=== PATIENT | male | born 1955 | race Caucasian/White ===

== ENCOUNTER 2017-04-03 08:45 | Inpatient (IN) | payer MEDICARE ==
[2017-05-18 12:51] VITALS: BMI 34.4
[2017-05-21] MEDS ORDERED: Ropivacaine 0.2% HCl/PF 20 ML ONE (11:50)
[2017-05-21] MEDS ORDERED: Midazolam HCl 2 mg/2 ml Vial ONE (11:50)
[2017-05-21] MEDS ORDERED: Fentanyl 100 MCG/2 ML VIAL ONE ×5 (11:50→16:25)
[2017-05-21] MEDS ORDERED: Neomycin-Polymyxin 1 ML AMP ONE ×2 (12:24→13:20)
[2017-05-21] MEDS ORDERED: Bupivacaine HCl 0.5%/Epinephrine 1:200,000/PF 30 ml Vial ONE (12:24)
[2017-05-21] MEDS ORDERED: Ondansetron HCl/PF 4 MG/2 ML Vial ONE (13:04)
[2017-05-21] MEDS ORDERED: Dexamethasone 20 MG/5 ML VIAL ONE (13:04)
[2017-05-21] MEDS ORDERED: Lidocaine 1% PF 5 ML VIAL ONE (13:04)
[2017-05-21] MEDS ORDERED: traMADol HCl 50 MG TAB PO PRN (13:20)
[2017-05-21] MEDS ORDERED: HYDROcodone/Acetaminophen 10/325 mg Tablet PO PRN ×2 (13:20)
[2017-05-21] MEDS ORDERED: Promethazine HCl 25 MG/ML VIAL IM PRN ×2 (13:20→15:51)
[2017-05-21] MEDS ORDERED: Ropivacaine HCl/PF 250 ML in Premix Bag 1 BAG NERVE BLCK SCH ×2 (13:20→13:22)
[2017-05-21] MEDS ORDERED: Zolpidem Tartrate 5 MG TAB PO PRN (13:20)
[2017-05-21] MEDS ORDERED: Ondansetron HCl/PF 4 MG/2 ML Vial IVP PRN ×2 (13:20→15:51)
[2017-05-21] MEDS ORDERED: Milk Of Magnesia 30 ML UDCUP PO PRN (15:22)
[2017-05-21] MEDS ORDERED: Cepastat Lozenges 1 LOZ PO PRN (15:22)
[2017-05-21] MEDS ORDERED: Fentanyl 100 MCG/2 ML VIAL SLOW IVP PRN (15:22)
[2017-05-21] MEDS ORDERED: Fleet Enema 133 ML BOT PR PRN (15:22)
[2017-05-21] MEDS ORDERED: HYDROmorphone 2 MG/ML VIAL SLOW IVP PRN (15:51)
[2017-05-21] MEDS ORDERED: Promethazine HCl 25 MG/ML VIAL SLOW IVP PRN (15:51)
--- NOTE | 2017-05-21 18:20 | RAD ---
TWO VIEWS OF THE RIGHT KNEE: Comparison: None. History: Status post right knee arthroplasty. FINDINGS: Two views right knee shows the patient to be status post right knee arthroplasty without perihardwar e lucency or fracture. Air in the soft tissues and overlying skin augustina are from recent surgery. IMPRESSION: Status post right knee arthroplasty without evidence of complication. POS: [facility]
--- NOTE | 2017-05-21 18:22 | RAD ---
TWO VIEWS LEFT KNEE: Comparison: None. History: Status post left knee arthroplasty. FINDINGS: Two views of the left knee shows the patient to be status post left knee arthroplasty without periha rdware lucency or fracture. Air in the soft tissues and overlying skin augustina are from recent surge ry. IMPRESSION: Status post left knee arthroplasty without evidence of complication. POS: [facility]
[2017-05-21] MEDS: Dextrose 5 %-0.45 % NaCl 1,000 ML IV SCH (18:53)
[2017-05-21] MEDS: Fentanyl 100 MCG/2 ML VIAL SLOW IVP PRN (19:03)
--- NOTE | 2017-05-21 20:59 | PDOC.EVN ---
Event Note - Event Note Event Note: Resident to bedside for code filiberto called 2/2 episode of syncope during micturation at approx. 2030 on 05/21. Pt s/p b/l knee surgery w/ last dose of pain medication given earlier on in the night. Per nursing staff, patient has been running bradycardic in the 50's with otherwise normal vital signs. Pt w/ LOC for approximately 20 second with subsequent regaining of consciousness. No seizure activity witnessed, no confusion. Repeat vital signs w/ stable BP and mild bradycardia at 57. 12 lead EKG obtained showing sinus bradycardia at 57 bpm. No sinus tachycardia was documented in prior vital signs. Pt currently on aspirin as he is POD#1. No other anticoagulation for DVT ppx. Denies any CP or SOB at this time. Cardiac enzymes were drawn. On exam, pt neurologically intact. Nursing staff to notify admitting physician Dr. Rangel of likely vaso -vagal syncopal event during micturation. For exact vital signs please refer to code sheet documentation.
[2017-05-21 21:17] LABS: Troponin I 0.012 ng/mL (< 0.028)
[2017-05-21] MEDS: Ferrous Gluconate 324 MG TAB PO SCH (21:42)
[2017-05-21] MEDS: Acetaminophen 500 MG TAB PO PRN (21:52)
--- NOTE | 2017-05-21 22:38 | OP ---
DATE OF SURGERY: 05/21/2017 OPERATIONS: 1. Right total knee arthroplasty. 2. Left total knee arthroplasty. PREOPERATIVE DIAGNOSIS: Bilateral advanced knee osteoarthritis. POSTOPERATIVE DIAGNOSIS: Bilateral advanced knee osteoarthritis. COMPLICATIONS: None. ESTIMATED BLOOD LOSS: 200 mL SURGEON: Jason Rangel M.D. BULK MAIL CLERK: Waqas Lee PA-C. INDICATIONS: Mr. Medina is a 61-year-old male, who has developed severe osteoarthritis of the knees. He has been treated conservatively, but has failed to improve. He has been indicated now for bilat eral total knee arthroplasty to restore function and relieve pain. Risks have been reviewed in [facility]. He has elected to proceed with the operation. DESCRIPTION OF PROCEDURE: Mr. Medina was identified in the preoperative holding area. His bilateral extremities were marked. He was carried to the operating room. He was positioned supine. General anesthesia was induced. A multidisciplinary timeout was performed. The bilateral lower extremities were prepped and draped in sterile fashion. We began the procedure with the right total knee arthroplasty. We performed an anterior approach to the right knee. We dissected down through the subcutaneous tissues and a medial peripatellar arthr otomy was created. We exposed the underlying knee joint, which was extensively arthritic. There we re large osteophytes. We performed a medial release as well as the anterior fat pad resection. We then everted the patella. We resected 99 mm of patellar bone and debrided the osteophytes from the patellar margin. At this point, we drilled for a 41 mm oval dome patella. This reconstituted mattson lar height well upon caliber measurement. At this point, we flexed the knee. We entered the intramedullary canal of the femur and we then res ected our distal femur with an appropriate guide. Next, we used our four-in-one cutting block after sizing the knee at a 5. We made our anterior, posterior, and chamfer cuts followed by our box oste otomy. This completed femoral preparation. At this point, we moved to the tibia. We placed our extramedullary tibial cutting block and resecte d our tibia appropriately removing 2 mm from the medial tibial plateau. Again, we removed osteophyt es and cleared soft tissues. There were multiple loose bodies, which were removed from the posterio r knee. At this point, we drilled and punched our tibial surface. We then trialed. A size 10 mm poly gave the best fit and range of motion. At this point, we removed our trial components. We thoroughly irrigated with copious lavage. We th en cemented in our total knee arthroplasty. We placed our final polyethylene components. We debrid ed, cemented, and then closed with #2 Vicryl suture, 2-0 Vicryl suture, and augustina for the skin. A sterile dressing was applied on the right knee. At this point, we proceeded with left knee arthroplasty. We repeated this similar procedure by miguel ng an anterior approach to the knee with a medial parapatellar arthrotomy. We performed a medial re lease and anterior fat pad resection. Again, we everted the patella and resected 9 mm of patellar b one. We then drilled for a 41 mm patellar button. This reconstituted patellar height. We flexed t he knee at this point, we entered the intramedullary canal. We then resected the distal femur of 9 mm. Next, we sized for a size 5 femur and made our anterior, posterior, and chamfer cuts followed b y our box cut for our femoral preparation. Next, we moved to the tibia. Again, we resected 2 mm fr om the medial tibial plateau level and the tibial plateau. We resected osteophytes then punched and drilled our tibia. Again, a size 5 was appropriate. A 12.5 polyethylene gave the best fit at this knee on trialing. We removed our trial components. We thoroughly irrigated with copious lavage an d again, we implanted our final components with cement technique. Finally, we removed excess cement . We then closed with #2-0 Vicryl suture, 2-0 Vicryl suture, and augustina for the skin. A sterile d ressing was applied at this point. The patient was then taken to the recovery room in good conditio n without complication. IMPLANTS: Right knee size 5 femur, size 5 tibia, size 10 mm polyethylene, and 41 mm oval dome mattson la. This is a [employer] posterior stabilized fixed bearing knee. Left knee [employer] posterior stabilized fixed bearing knee size 5 femur, size 5 tibia, size 12.5 polyethylene, and size 41 mm patella.
[2017-05-22] MEDS: traMADol HCl 50 MG TAB PO PRN ×4 (01:14→22:00)
[2017-05-22] MEDS: Dextrose 5 %-0.45 % NaCl 1,000 ML IV SCH ×3 (02:03→20:32)
[2017-05-22 05:45] LABS: Hematocrit 31.6 % (42.0-52.0); Red Blood Cell (RBC) Count 3.36 mill/uL (4.70-6.10); White Blood Cell (WBC) Count 15.5 thou/uL (4.8-10.8)
[2017-05-22] MEDS: Acetaminophen 500 MG TAB PO PRN ×3 (06:09→19:23)
[2017-05-22] MEDS ORDERED: Acetaminophen/Codeine 30-300mg Tablet PO PRN ×3 (07:36→07:38)
[2017-05-22] MEDS: Ferrous Gluconate 324 MG TAB PO SCH ×2 (08:40→19:23)
[2017-05-22] MEDS: Multivitamin W/ Minerals 1 TAB PO SCH (08:40)
[2017-05-22] MEDS: Enoxaparin Sodium 40 MG/0.4 ML SYRINGE SC SCH (08:41)
[2017-05-22] MEDS: Fentanyl 100 MCG/2 ML VIAL SLOW IVP PRN (20:56)
[2017-05-23] MEDS: traMADol HCl 50 MG TAB PO PRN ×4 (04:22→23:05)
[2017-05-23 06:23] LABS: Hematocrit 32.6 % (42.0-52.0); Mean Platelet Volume 7.8 fL (7.4-10.4); Red Blood Cell (RBC) Count 3.42 mill/uL (4.70-6.10)
[2017-05-23] MEDS: Multivitamin W/ Minerals 1 TAB PO SCH (08:03)
[2017-05-23] MEDS: Enoxaparin Sodium 40 MG/0.4 ML SYRINGE SC SCH (08:03)
[2017-05-23] MEDS: Ferrous Gluconate 324 MG TAB PO SCH ×2 (08:03→20:21)
[2017-05-23] MEDS: Acetaminophen 500 MG TAB PO PRN ×3 (08:06→20:20)
[2017-05-23] MEDS: Dextrose 5 %-0.45 % NaCl 1,000 ML IV SCH ×2 (13:15→19:35)
[2017-05-24] MEDS: Acetaminophen 500 MG TAB PO PRN ×2 (01:56→08:18)
[2017-05-24] MEDS: Dextrose 5 %-0.45 % NaCl 1,000 ML IV SCH ×2 (01:56→13:45)
[2017-05-24] MEDS: traMADol HCl 50 MG TAB PO PRN ×2 (05:19→12:33)
[2017-05-24 06:12] LABS: Hematocrit 29.6 % (42.0-52.0); Mean Platelet Volume 7.6 fL (7.4-10.4); Red Blood Cell (RBC) Count 3.11 mill/uL (4.70-6.10); White Blood Cell (WBC) Count 15.2 thou/uL (4.8-10.8)
[2017-05-24] MEDS: Enoxaparin Sodium 40 MG/0.4 ML SYRINGE SC SCH (08:19)
[2017-05-24] MEDS: Multivitamin W/ Minerals 1 TAB PO SCH (08:20)
[2017-05-24] MEDS: Ferrous Gluconate 324 MG TAB PO SCH (08:20)
[2017-05-24 12:46] VITALS: BP 133/84; TEMP 98.4
--- NOTE | 2017-05-25 13:20 | DIS ---
DATE OF ADMISSION: 05/21/2017 DATE OF DISCHARGE: 05/24/2017 ADMISSION DIAGNOSES: 1. End-stage tricompartmental osteoarthritis, right knee. 2. End-stage tricompartmental osteoarthritis, left knee (bilateral knee osteoarthritis). DISCHARGE DIAGNOSES: 1. End-stage tricompartmental osteoarthritis, right knee. 2. End-stage tricompartmental osteoarthritis, left knee (bilateral knee osteoarthritis). OPERATIVE PROCEDURE: 1. Right total knee arthroplasty. 2. Left total knee arthroplasty (bilateral total knee arthroplasty). CONSULTANTS: [facility] for acute postop pain management. BRIEF CLINICAL HISTORY: Celestine is a 61-year-old white male, who has had progressive bilateral knee pain amplified with standing and walking for the last 5-7 years. He has failed conservative manage ment and elected to proceed with total knee arthroplasty as definitive treatment for his problem. Alvarez gandhi was admitted to [facility] and underwent the above elective procedures on t he date of admission without intra, ben, or postoperative complication. His hospital course was un remarkable. At the time of discharge to home, the patient was afebrile. He was ambulatory in a ful l weight-bearing fashion bilaterally with a rolling walker, tolerating a regular diet, and voiding. His incisions are clean and closed without any erythema. He is neurovascularly intact in both lowe r extremities. DISCHARGE MEDICATIONS: Include Hanna and Lovenox for DVT prophylaxis. We will be happy to see the patient on an as needed basis between now and his next scheduled appoint ment in 12-14 days. CONDITION ON DISCHARGE: Stable. PROGNOSIS: Good.
== END 2017-05-24 13:45 | disposition home or self-care (01) | DRG 462 ==
LOC: SURG A 05-21 10:52 → SJJU 05-21 13:46
PROVIDERS: ADMIT Orthopaedic Surgery; ATTEND Orthopaedic Surgery
PROC: 0SRD0J9 Replacement of Left Knee Joint with Synthetic Substitute, Cemented, Open Approach (ICD-10-PCS; principal; 2017-05-21)
PROC: 0SRC0J9 Replacement of Right Knee Joint with Synthetic Substitute, Cemented, Open Approach (ICD-10-PCS; 2017-05-21)
PROC: 3E0T3BZ Introduction of Anesthetic Agent into Peripheral Nerves and Plexi, Percutaneous Approach (ICD-10-PCS; 2017-05-21)
DX: M17.0 Bilateral primary osteoarthritis of knee (principal)
CPT/HCPCS: 36415; 36416; 82553; 84484; 85027; 86850; 86900; 86901; 93005; 93010; C1713; C1776; G8978-GP-CL; G8979-GP-CJ; G8987-GO-CK; G8988-GO-CI; J0670; J1100; J1170; J1650; J2001; J2250; J2405; J2795; J3010

== ENCOUNTER 2017-05-31 12:46 | Outpatient (CLI) | payer MEDICARE ==
--- OUTSIDE RECORDS SUMMARY | 2017-05-31 12:48 | XMS | Clinical Summary ---
:1955 Author Organization [facility] Address [address] [place] [address] Phone Care Team Providers Name Role Phone , Primary Care Provider Unavailable Allergies Not on File Current Medications Not on file Active Problems Not on file Social History Tobacco Use Types Packs/Day Years Used Date Never Assessed Sex Assigned at Date Recorded Not on file Last Filed Vital Signs Not on file Plan of Treatment Not on file Results Not on filefrom Last 3 Months
--- NOTE | 2017-05-31 14:46 | ULT ---
BILATERAL LOWER EXTREMITY DVT ULTRASOUND: INDICATION: Bilateral leg swelling with history of bilateral knee replacements. TECHNIQUE: May scale, color Doppler, and vascular duplex with spectral analysis was performed of the deep veno us structures of both lower extremities. The common femoral vein, superficial femoral vein, poplitea l vein, posterior tibial vein, proximal greater saphenous, and proximal profunda veins were assessed bilaterally. FINDINGS: Normal compression, flow, and augmentation seen within the deep venous structures of both lower extr emities. IMPRESSION: No evidence of deep vein thrombosis within both lower extremities. POS: OFF
== END 2017-05-31 12:47 | disposition home or self-care (01) ==
LOC: SCSULT 12:46
PROVIDERS: ATTEND Orthopaedic Surgery
DX: Z96.653 Presence of artificial knee joint, bilateral (principal); M79.605 Pain in left leg; M79.604 Pain in right leg
CPT/HCPCS: 93970